=== PATIENT | female | born 1990 | race African-American/Black ===

== ENCOUNTER 2022-06-27 12:40 | Emergency (ER) | payer MEDICAID ==
[~2022-06-27] VITALS: Ht 154.9 cm; Wt 78.8 kg
[2022-06-27 12:50] VITALS: BP 127/90
[2022-06-27] MEDS ORDERED: LIDOCAINE HCL/PF 1% 10 MG/ML 5ML VIAL INFIL ONE (13:45)
[2022-06-27] MEDS ORDERED: BACITRACIN ZINC OINT UDPKT TOP ONE (13:45)
[2022-06-27] MEDS ORDERED: TETANUS, DIPHTHERIA, PERTUSSIS VAC/PF 0.5ML (>10YR OLD) IM ONE (13:45)
[2022-06-27] MEDS ORDERED: CEPH500C2 MT (14:33)
== END 2022-06-27 14:56 | disposition home or self-care (01) ==
LOC: ER 12:52
DX: S01.81XA Laceration without foreign body of other part of head, initial encounter (principal); X99.0XXA Assault by sharp glass, initial encounter; Y93.9 Activity, unspecified; Y92.9 Unspecified place or not applicable
CPT/HCPCS: 12014; 90715; 99283; J3490; Z7610

== ENCOUNTER 2022-07-05 10:29 | Emergency (ER) | payer MEDICAID ==
[~2022-07-05] VITALS: Ht 154.9 cm; Wt 77.0 kg
[~2022-07-05 10:29] MED LIST: CEPH500C2 MT
[2022-07-05 10:33] VITALS: BP 118/54
== END 2022-07-05 11:00 | disposition home or self-care (01) ==
LOC: ER 10:34
DX: S01.81XA Laceration without foreign body of other part of head, initial encounter (principal); X58.XXXA Exposure to other specified factors, initial encounter; Y93.89 Activity, other specified; Y92.89 Other specified places as the place of occurrence of the external cause; Y99.8 Other external cause status; Z48.02 Encounter for removal of sutures
CPT/HCPCS: 99281; Z7610